=== PATIENT | female | born 1980 | race African-American/Black ===

== ENCOUNTER 2020-05-15 07:45 | Emergency (ER) | payer OTHER ==
[~2020-05-15] VITALS: Ht 167.6 cm; Wt 101.2 kg
[2020-05-15 08:36] LABS: HEMOGLOBIN 10.4 gm/dL (12.0-15.0); MCH 23.4 pg (26.0-34.0); MCHC 31.6 g/dL (28.0-37.0); MCV 74.3 fL (80.0-100.0); MPV 8.3 fl. (7.2-11.1); RBC 4.45 mil/uL (4.20-5.00); RDW-CV 16.9 % (10.5-14.5); WBC 4.2 thou/uL (4.0-11.0)
[2020-05-15 08:40] LABS: CALCIUM 8.5 mg/dL (8.5-10.1); CREATININE 0.7 mg/dL (0.6-1.3); POTASSIUM 4.3 mmol/L (3.5-5.1)
[2020-05-15] MEDS ORDERED: VENTOLIN HFA 1818 GM INH (09:36)
[2020-05-15] MEDS ORDERED: TESSALON PERLE100 M1 PO (09:36)
[2020-05-15 09:54] VITALS: BP 128/78
--- NOTE | 2020-05-15 10:57 | EKG ---
[place] [address] ELECTROCARDIOGRAM REPORT Name: KIERAN WHITT Room: [facility]#: [id number] Admission: 05/15/20 Attend Phys: Discharge: 05/15/20 Date of : 80 Date of Service: 05/15/20828 Report #: [id number] THIS REPORT FOR: //name// 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: [facility] : 1980 Requested By: Kole Salcedo Order Number: [id number] MD: Win Sierra Measurements Intervals [place] Rate: 83 P: 17 UT: 218 QRS: 12 QRSD: 82 T: 12 QT: 378 QTc: 445 Interpretive Statements Sinus rhythm Prolonged UT interval Possible anteroseptal infarct, old Borderline T abnormalities, inferior leads Borderline ST elevation, lateral leads No previous ECG available for comparison Electronically Signed On 05-15-2020 10:56:47 CDT by Win Sierra [email or web address] <ELECTRONICALLY SIGNED> By: Win Sierra MD, [facility] 05/15/20 1056 0829 0829 Win Sierra MD, [facility] /EPI
== END 2020-05-15 09:55 | disposition home or self-care (01) ==
LOC: M.ERS 07:45
PROVIDERS: Emergency Medicine Emergency Medical Services
DX: U07.1 COVID-19 (principal)